=== PATIENT | female | born 1965 | race Caucasian/White ===

== ENCOUNTER → 2017-10-27 14:46 | Outpatient (CLI) | payer MEDICAID, SELFPAY ==
--- NOTE | 2017-10-27 15:02 | RAD_ITS ---
STUDY: X-RAY - LUMBAR SPINE REASON FOR EXAM: Female, 52 years old. Low back pain TECHNIQUE: 3 view(s) of the lumbar spine were obtained. COMPARISON: None FINDINGS: Normal lumbar lordosis. There is no substantial scoliosis. There is a normal alignment of the vertebrae. There is multilevel endplate spondylosis of the lumbar vertebrae. Moderate to severe disc space height loss at L5-S1. The soft tissue structures are unremarkable. RAD/Lumbar Spine 2 or 3 Views IMPRESSION: Prominent degenerative change at L5-S1 Electronically Signed: Erick Ferreira DO at 15:49 EST Tel , Service support ,
== END ==
PROVIDERS: Visit Provider Nurse Practitioner Family
DX: M54.5 Low back pain (principal)
CPT/HCPCS: 72100

== ENCOUNTER 2018-08-18 15:34 | Emergency (ER) | payer MEDICAID, SELFPAY ==
[2018-08-18 15:35] VITALS: BP 113/65; PULSE 63; RESP 18; TEMP 37; O2SAT 99; BMI 26.8
--- NOTE | 2018-08-18 15:50 | RAD_ITS ---
STUDY: X-RAY - RIGHT HAND REASON FOR EXAM: Female, 53 years old. Fall on Friday while backpacking. Pain. TECHNIQUE: 3 view(s) of the hand. COMPARISON: None. FINDINGS: Mild osteopenia. Minimal osteoarthritic degenerative features of the distal interphalangeal joints of each digit. Normal proximal interphalangeal joints, metacarpophalangeal joints, carpometacarpal joints and intercarpal articulations with normal appearance of the radiocarpal joint. No apparent soft tissue swelling. No evidence of fracture or dislocation. There is a tiny corticated ossicle along the dorsal aspect of the distal head of the middle phalanx of the 3rd digit, another along the margin of the distal interphalangeal joint of the 2nd digit, chronic appearance. RAD/Hand Min 3 Views IMPRESSION: No evidence of acute traumatic injury. Electronically Signed: Mickey Joellen, at 16:04 EST Tel , Service support ,
--- NOTE | 2018-08-18 15:52 | ED.DCSUM_ITS ---
- ER Visit Summary Date of Service: 08/18/18 Chief Complaint: Right hand injury History of Present Illness: The patient is a 53 F who was hiking in [place] over the weekend and fell in the ice and snow. She had pain to the right hand for the past 4 days. She states that the swelling does seem to be improving, but she still has pain that is worsened with flexion or extension at her wrist. She has occasional paresthesias in her thumb and her long finger. She is right-hand dominant. Physical Examination: Vital signs are unremarkable. Patient sitting upright in bed no acute distress. Head and neck examination reveals no external sign of trauma. Right upper extremity examination is significant for tenderness of the proximal aspect of the second and third metacarpals on the dorsal surface of her hand. There is minimal overlying edema. She has full range of motion of all digits and at the wrist. She has normal cap refill and sensation. There is no tenderness at the elbow or shoulder. Test Results: Right hand x-rays reveal no evidence of acute fracture. Emergency Department Course and Treatment: Patient is placed in a Velcro wrist splint. She will continue anti-inflammatories. Treatment Plan: [] Disposition: Discharge Impression: Right wrist sprain status post fall This note was generated with [employer] dictation software. It may contain incorrect words, spelling, and punctuation that were not noted in review of the chart prior to signing ED Disposition - Plan for ED Patient: Chief Complaint: Upper Extremity Injury Referrals: Tamika Adame [Primary Care Provider] -
--- NOTE | 2018-08-18 16:29 | ED.DEP ---
ED Disposition - Plan for ED Patient: Disposition: Home or Assisted Living Chief Complaint: Upper Extremity Injury Instructions: ED Sprain Wrist Referrals: Tamika Adame [Primary Care Provider] - 1 Week if not improving
== END 2018-08-18 16:47 | disposition home or self-care (01) ==
PROVIDERS: Emergency Provider Emergency Medicine
DX: S63.501A Unspecified sprain of right wrist, initial encounter (principal); W00.0XXA Fall on same level due to ice and snow, initial encounter; Y93.01 Activity, walking, marching and hiking
CPT/HCPCS: 73130; 99283

== ENCOUNTER 2018-12-12 00:46 | Observation (INO) | payer MEDICAID, SELFPAY ==
[2018-12-12] VITALS (10 sets, daily range): BP systolic 101–141; BP diastolic 52–69; PULSE 59–82; RESP 12–18; TEMP 36.5–37.1; O2SAT 98–100; BMI 29.1; BMI 28.3
--- NOTE | 2018-12-12 01:00 | EKG12_ITS ---
Test Reason : CP Blood Pressure : / mmHG Vent. Rate : 066 BPM Atrial Rate : 066 BPM P-R Int : 156 ms QRS Dur : 086 ms QT Int : 416 ms P-R-T Axes : 040 025 043 degrees QTc Int : 436 ms Normal sinus rhythm Normal ECG Confirmed by ELLEN MATT ([id number]), news video editor CEE NOYOLA ([id number]) on 12/14/2018 4:28:04 PM Referred By: Ilda Beckham Confirmed By:ELLEN MATT
--- NOTE | 2018-12-12 01:00 | RAD_ITS ---
STUDY: X-RAY CHEST REASON FOR EXAM: Female, 53 years old. Chest pain TECHNIQUE: 1 view COMPARISON: None. FINDINGS: The lungs are clear and expanded. There is no demonstrated pleural abnormality. Normal size heart. Normal mediastinum and joe. Normal visualized pulmonary arteries. Normal visualized aortic arch and descending thoracic aorta. Normal visualized thoracic spine. Normal visualized ribs, clavicles, and shoulders. There is no demonstrated abnormality of the visualized soft tissue structures of the upper abdomen. RAD/Chest 1 View (Portable) IMPRESSION: Normal x-ray examination of the chest. No acute findings in the lungs Electronically Signed: Dipak Perez MD at 2:27 EDT Tel , Service support ,
[2018-12-12 01:15] LABS: Absolute Lymphocyte Count 4.16 X10^3/ul (0.83-4.51); Absolute Neutrophil Count 7.6 X10^3/uL (2.0-7.7); Basophil# 0.03 X10^3/uL; Basophil% 0.2 % (0-1); Eosinophil# 0.19 X10^3/uL; Eosinophils% 1.4 % (0-5); Hematocrit 39.5 % (37-47); Hemoglobin 12.8 g/dl (12.0-15.0); Lymphocyte # 4.16 X10^3/ul (4.0); Lymphocyte % 30.7 % (19-41); Mean Corp Hgb Conc 32.4 g/gl (32-36); Mean Corpuscular Hgb 29.9 pg (27.0-32.0); Mean Corpuscular Volume 92.3 fL (81-99); Mean Platelet Vol. 10.6 fl (6.2-12.0); Monocyte# 1.51 X10^3/uL; Monocyte% 11.2 % (0-10); Neutrophil % 56.2 % (47-70); Platelet Count 364 K/mm3 (150-450); RBC Distribution Width CV 14.1 % (11.6-14.6); RBC Distribution Width SD 46.3 fl (35.1-43.9); Red Blood Count 4.28 M/mm3 (4.2-5.4); White Blood Count 13.5 K/mm3 (4.4-11.0)
[2018-12-12 01:16] LABS: POSITIVE COUNT NO; POSITIVE DIFFERENTIAL YES; POSITIVE MORPHOLOGY NO
[2018-12-12 01:17] LABS: International Normalized Ratio 0.9; Prothrombin Time (Protime)PT. 12.1 SECONDS (11.7-14.9)
[2018-12-12] MEDS: Aspirin 81 MG TAB.CHEW 324 MG PO (01:22)
[2018-12-12 01:25] LABS: Anion Gap 6 (5-15); BUN 19 mg/dL (7-18); BUN/Creat Ratio 27.9 RATIO (10-20); Calcium,Total 8.8 mg/dL (8.5-10.1); Chloride 102 mmol/L (98-107); Creatinine, Serum 0.68 mg/dL (0.55-1.02); EST Glomerular Filtration Rate 97 mL/min (>60); Est Glom Filt Rate - Afr Amer 117 mL/min (>60); Estimated Creatinine Clearance 77.41 ml/min; Glucose 85 mg/dL (74-106); Potassium 3.8 mmol/L (3.5-5.1); Sodium Level 135 mmol/L (136-145)
[2018-12-12 01:32] LABS: Partial Thromboplast Time 28.4 Seconds (24.1-36.2)
[2018-12-12 01:38] LABS: Differential Comment SCAN
[2018-12-12 02:15] LABS: Differential Indicated SCAN CRITERIA MET
--- NOTE | 2018-12-12 02:31 | ED.VIS.GEN ---
History of Present Illness Chief Complaint: Chest Pain Informant: Patient Onset: Weeks - 1 Context: Gradual Onset Timing: Intermittent, Lasts - 30 min or so Quality: heaviness/pressure Location: left chest w/ radiation to left shoulder and jaw Current Severity: gone Maximum Severity: Severe Worsened by: nothing -- occur at rest Relieved by: nothing in particular Associated Symptoms: no others; no n/v, sob, numbness, palpitations, lightheadedness Narrative: Patient states these are the same symptoms she had when she had 2 stents placed around 5 years ago. She has had no stress test in the past 4 or 5 years. The stents were placed in a hospital in [facility], she brought some discharge paperwork showing medications including ticagrelor, she is no longer taking that just a baby aspirin, they do not show details about her heart cath/anatomy/stents. Prior similar symptoms: Yes - w/ prior [place] Recent Illness/Hospitalization: No - Past Medical History (1) HTN (hypertension) Status: Chronic (2) CAD (coronary artery disease) Status: Chronic (3) Hyperlipidemia Status: Chronic (4) Fibromyalgia Status: Chronic Past Medical History - Allergies and Home Meds Allergies/Adverse Reactions: Allergies bee venom protein (honey bee) Allergy (Verified 12/12/18 00:49) Swelling azithromycin Adverse Reaction (Verified 12/12/18 00:49) Nausea ANESTHETIC- UNKNOWN Adverse Reaction (Uncoded 12/12/18 00:49) Vomiting Primary Care Physician: Tamika Adame [Primary Care Provider] - Surgical History: - - PCI/cardiac stent x 2 Lives: Alone Smoking Status: Former smoker Drugs: None Review of Systems General: Denies: Chills, Fever, Sweats Eyes: Denies: Visual changes - bilaterally, Diplopia ENT: Denies: Rhinorrhea, Sore throat Cardiovascular: Reports: Chest pain. Denies: Palpitations Respiratory: Denies: Dyspnea, Cough, Dyspnea on exertion Gastrointestinal: Denies: Abdominal pain, Nausea, Vomiting, Diarrhea, Melena, Hematochezia Genitourinary: Denies: Dysuria, Hematuria, Frequency Musculoskeletal: Reports: Neck pain - and jaw when chest pain present. Denies: Back pain, Extremity Pain Skin: Denies: Rash, Wounds Neurological: Denies: Headache, Weakness, Numbness Physical Exam Vital Signs/Narrative: Vital Signs Temp Pulse Resp BP Pulse Ox 12/12/18 02:19 68 16 98 12/12/18 01:49 59 L 18 123/69 H 100 12/12/18 01:19 100 12/12/18 00:46 98.7 F 68 18 141/68 H 100 Inital Vital Signs reviewed: Yes General: Well nourished, Well developed, No Acute Distress Head: Normocephalic, Atraumatic Eyes: Perrl, EOMI ENT: Moist mucous membranes, No rhinorrhea Neck: Supple, Nontender Cardiovascular: Regular rate, Regular rhythm, No murmurs Respiratory: No distress, CTA bilaterally, Chest nontender Abdomen: Soft, Nontender, Nondistended, Normal bowel sounds Back: Nontender, Normal Inspection Extremities: Nontender, No edema Skin: Normal color, No rash Neurological: Alert, Oriented x3, Cranial nerves II-XII grossly intact, Normal Strength, Normal Sensation Psychological: Normal affect, Normal Mood Diagnostic/Tx/Re-eval Impressions Chest X-Ray 12/12/18 01:00 IMPRESSION: Normal x-ray examination of the chest. No acute findings in the lungs Electronically Signed: Dipak Perez MD at 2:27 EDT Tel , Service support , 12/12/18 01:00 Chest 1 View (Portable) [RAD] Stat Laboratory Results 12/12/18 12/12/18 12/12/18 00:55 00:55 00:55 WBC 13.5 H RBC 4.28 Hgb 12.8 Hct 39.5 MCV 92.3 MCH 29.9 MCHC 32.4 RDW 14.1 RDW Differential 46.3 H Plt Count 364 MPV 10.6 Immature Gran % (Auto) 0.300 Neut % (Auto) 56.2 Lymph % (Auto) 30.7 [place] % (Auto) 11.2 H Eos % (Auto) 1.4 Baso % (Auto) 0.2 Absolute Neuts (auto) 7.6 Absolute Lymphs (auto) 4.16 Total Counted Not Reportable Differential Comment SCAN Diff Path Review January PT 12.1 INR 0.9 APTT 28.4 Sodium 135 L Potassium 3.8 Chloride 102 Carbon Dioxide 27.0 Anion Gap 6 BUN 19 H Creatinine 0.68 Estim Creat Clear Calc 77.41 Est GFR (MDRD) Af Amer 117 Est GFR (MDRD) Non-Af 97 BUN/Creatinine Ratio 27.9 H Glucose 85 Calcium 8.8 Troponin I < 0.015 - Rhythm Strip Rhythm Strip: Sinus Rhythm Rate: 65 Ectopy: None - EKG Initial EKG Interpretation: Sinus Rhythm, No Acute Injury Pattern, - - nml EKG - Medical Decision Making JOEL risk score is 4. I am concerned that she may be having episodes of unstable angina. No evidence of [place] at this time. She is amenable to admission for further workup and evaluation. Admitted to PCU. ED Disposition - Plan for ED Patient: Disposition: Acute Care Hospital [facility] Diagnosis: Unstable angina, CAD (coronary artery disease) Referrals: Tamika Adame [Primary Care Provider] -
--- NOTE | 2018-12-12 02:37 | ED.DCSUM_ITS ---
History of Present Illness Chief Complaint: Chest Pain Informant: Patient Onset: Weeks - 1 Context: Gradual Onset Timing: Intermittent, Lasts - 30 min or so Quality: heaviness/pressure Location: left chest w/ radiation to left shoulder and jaw Current Severity: gone Maximum Severity: Severe Worsened by: nothing -- occur at rest Relieved by: nothing in particular Associated Symptoms: no others; no n/v, sob, numbness, palpitations, lightheadedness Narrative: Patient states these are the same symptoms she had when she had 2 stents placed around 5 years ago. She has had no stress test in the past 4 or 5 years. The stents were placed in a hospital in [facility], she brought some discharge paperwork showing medications including ticagrelor, she is no longer taking that just a baby aspirin, they do not show details about her heart cath /anatomy/stents. Prior similar symptoms: Yes - w/ prior [place] Recent Illness/Hospitalization: No - Past Medical History (1) HTN (hypertension) Status: Chronic (2) CAD (coronary artery disease) Status: Chronic (3) Hyperlipidemia Status: Chronic (4) Fibromyalgia Status: Chronic Past Medical History - Allergies and Home Meds Allergies/Adverse Reactions: Allergies bee venom protein (honey bee) Allergy (Verified 12/12/18 00:49) Swelling azithromycin Adverse Reaction (Verified 12/12/18 00:49) Nausea ANESTHETIC- UNKNOWN Adverse Reaction (Uncoded 12/12/18 00:49) Vomiting Primary Care Physician: Tamika Adame [Primary Care Provider] - Surgical History: - - PCI/cardiac stent x 2 Lives: Alone Smoking Status: Former smoker Drugs: None Review of Systems General: Denies: Chills, Fever, Sweats Eyes: Denies: Visual changes - bilaterally, Diplopia ENT: Denies: Rhinorrhea, Sore throat Cardiovascular: Reports: Chest pain. Denies: Palpitations Respiratory: Denies: Dyspnea, Cough, Dyspnea on exertion Gastrointestinal: Denies: Abdominal pain, Nausea, Vomiting, Diarrhea, Melena, Hematochezia Genitourinary: Denies: Dysuria, Hematuria, Frequency Musculoskeletal: Reports: Neck pain - and jaw when chest pain present. Denies: Back pain, Extremity Pain Skin: Denies: Rash, Wounds Neurological: Denies: Headache, Weakness, Numbness Physical Exam Vital Signs/Narrative: Vital Signs Temp Pulse Resp BP Pulse Ox 12/12/18 02:19 68 16 98 12/12/18 01:49 59 L 18 123/69 H 100 12/12/18 01:19 100 12/12/18 00:46 98.7 F 68 18 141/68 H 100 Inital Vital Signs reviewed: Yes General: Well nourished, Well developed, No Acute Distress Head: Normocephalic, Atraumatic Eyes: Perrl, EOMI ENT: Moist mucous membranes, No rhinorrhea Neck: Supple, Nontender Cardiovascular: Regular rate, Regular rhythm, No murmurs Respiratory: No distress, CTA bilaterally, Chest nontender Abdomen: Soft, Nontender, Nondistended, Normal bowel sounds Back: Nontender, Normal Inspection Extremities: Nontender, No edema Skin: Normal color, No rash Neurological: Alert, Oriented x3, Cranial nerves II-XII grossly intact, Normal Strength, Normal Sensation Psychological: Normal affect, Normal Mood Diagnostic/Tx/Re-eval Impressions Chest X-Ray 12/12/18 01:00 IMPRESSION: Normal x-ray examination of the chest. No acute findings in the lungs Electronically Signed: Dipak Perez MD at 2:27 EDT Tel , Service support , 12/12/18 01:00 Chest 1 View (Portable) [RAD] Stat Laboratory Results 12/12/18 12/12/18 12/12/18 00:55 00:55 00:55 WBC 13.5 H RBC 4.28 Hgb 12.8 Hct 39.5 MCV 92.3 MCH 29.9 MCHC 32.4 RDW 14.1 RDW Differential 46.3 H Plt Count 364 MPV 10.6 Immature Gran % (Auto) 0.300 Neut % (Auto) 56.2 Lymph % (Auto) 30.7 [place] % (Auto) 11.2 H Eos % (Auto) 1.4 Baso % (Auto) 0.2 Absolute Neuts (auto) 7.6 Absolute Lymphs (auto) 4.16 Total Counted Not Reportable Differential Comment SCAN Diff Path Review January PT 12.1 INR 0.9 APTT 28.4 Sodium 135 L Potassium 3.8 Chloride 102 Carbon Dioxide 27.0 Anion Gap 6 BUN 19 H Creatinine 0.68 Estim Creat Clear Calc 77.41 Est GFR (MDRD) Af Amer 117 Est GFR (MDRD) Non-Af 97 BUN/Creatinine Ratio 27.9 H Glucose 85 Calcium 8.8 Troponin I < 0.015 - Rhythm Strip Rhythm Strip: Sinus Rhythm Rate: 65 Ectopy: None - EKG Initial EKG Interpretation: Sinus Rhythm, No Acute Injury Pattern, - - nml EKG - Medical Decision Making JOEL risk score is 4. I am concerned that she may be having episodes of unstable angina. No evidence of [place] at this time. She is amenable to admission for further workup and evaluation. Admitted to PCU. ED Disposition - Plan for ED Patient: Disposition: Acute Care Hospital [facility] Diagnosis: Unstable angina, CAD (coronary artery disease) Referrals: Tamika Adame [Primary Care Provider] -
--- NOTE | 2018-12-12 03:13 | PCM.HP.STD ---
Problem List (1) Chest pain Status: Acute Qualifiers: Chest pain type: unspecified Qualified Code(s): R07.9 - Chest pain, unspecified (2) Unstable angina Status: Acute (3) Nicotine vapor product user Status: Chronic (4) Former light tobacco smoker Status: Chronic (5) CAD (coronary artery disease) Status: Chronic Qualifiers: Coronary Disease-Associated Artery/Lesion type: unspecified vessel or lesion type [place] vs. transplanted heart: unspecified whether [place] or transplanted heart Associated angina: angina presence unspecified Qualified Code(s): I25.10 - Atherosclerotic heart disease of [place] coronary artery without angina pectoris (6) Fibromyalgia Status: Chronic (7) HTN (hypertension) Status: Chronic Qualifiers: Hypertension type: essential hypertension Qualified Code(s): I10 - Essential (primary) hypertension (8) Hyperlipidemia Status: Chronic Qualifiers: Hyperlipidemia type: pure hypercholesterolemia Qualified Code(s): E78.00 - Pure hypercholesterolemia, unspecified; E78.0 - Pure hypercholesterolemia (9) Anxiety and depression Status: Chronic History of Present Illness Date of Admission: 12/12/18 Chief Complaint: Chest pain The patient is a 53 y/o F w/ PMHx: CAD s/p PCI ~ 6 years prior, HTN, HLD, Anxiety and Depression, Former cigarette tobacco use now transition to vaping, Fibromyalgia, Overweight, Possible MTHFR mutation who presents to the [facility] ED on 12/12/18 with history of remittent midsternal chest pressure-tightness, rated 4-5/10 with radiation to the left shoulder and jaw, occurring at rest, lasting approximately 30 minutes with resolution with no specific interventions with no associated nausea, emesis, dyspnea or diaphoresis however the patient does admit that over the last week for no specific reason she has felt increased anxiety, awakening frequently at nights, grinding her teeth which she states is similar to her prior symptoms preceding her coronary intervention remotely. The patient is very active and she notes that she routinely hikes and has had no chest discomfort during these events. Work-up in the ED included T 98.7, heart rate 60, BP initially 141/68 with repeat 123/69, respiratory rate 18, 100% on room air, CBC with WBC 13.5, hemoglobin 12.8, platelets 364 without left shift, unremarkable coags, BMP with sodium 135, BUN/creatinine 19/0.68, troponin less than 0.015, EKG was sinus rhythm with no acute evidence of ischemia, chest x-ray with no acute cardiopulmonary findings. In ED patient ministered aspirin 324 mg p.o. x1. Upon ED evaluation patient was chest pain-free. Past Medical History Past Medical History (Chronic Problems): Chronic Problems HTN (hypertension) (Chronic) CAD (coronary artery disease) (Chronic) Hyperlipidemia (Chronic) Fibromyalgia (Chronic) Nicotine vapor product user (Chronic) Former light tobacco smoker (Chronic) Anxiety and depression (Chronic) Allergies bee venom protein (honey bee) Allergy (Verified 12/12/18 00:49) Swelling azithromycin Adverse Reaction (Verified 12/12/18 00:49) Nausea ANESTHETIC- UNKNOWN Adverse Reaction (Uncoded 12/12/18 00:49) Vomiting Home Medications: Ambulatory Orders Medication Instructions Recorded ALPRAZolam [Xanax] 0.25 mg PO BID PRN PRN 12/12/18 Atenolol [Tenormin (beta vani)] 50 mg PO DAILY 12/12/18 Atorvastatin Calcium [Lipitor] 40 mg PO QHS 12/12/18 Cyclobenzaprine [Flexeril] 10 mg PO DAILY 12/12/18 Escitalopram Oxalate 20 mg PO DAILY 12/12/18 Hydroxyzine HCl 25 mg PO DAILY PRN PRN 12/12/18 Surgical History: - - PCI/cardiac stent x 2, lumbar back surgery x 2, Rhinoplasty, T+A. 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 Alcohol: Occasional Drugs: Marijuana - *Family History Maternal History Items: - - Patient notes a maternal and paternal family history of MT HFR mutation, unclear type. Paternal History Items: - - Patient notes a maternal and paternal family history of MT HFR mutation, unclear type as well as a paternal family history of CVA. Review of Systems Constitutional: Reports: Fatigue. Denies: Chills, Fever, Weight Change HEENT: Denies: Head Aches, Sinus Congestion, Sinus Drainage Cardiovascular: Reports: Chest Pain, Chest Pressure, Chest Tightness. Denies: Heaviness, Light Headedness, Orthopnea, Palpitations, Syncope Respiratory: Denies: Cough, Shortness of Breath, Shortness of breath at rest, Shortness of breath upon exertion, Sputum production Gastrointestinal: Denies: Abdominal Pain, Nausea, Vomiting Genitourinary: Denies: Dysuria Musculoskeletal: Reports: Back Pain. Denies: Joint Pain, Joint Tenderness Skin: Denies: Rash, Wounds Neurological: Denies: Numbness, Tingling, Focal weakness Psychiatric: Reports: Anxiety, Depression. Denies: Homicidal Ideations, Suicidal Ideations Hematologic/ Lymphatic: Denies: Easy Bruising, Easy Bleeding VTE Information - Inpt Only VTE Present on Admission: No VTE Mechan Device Prophylaxis: SCD's VTE Pharm Prophylaxis ordered?: Yes Patient Problems: Active and Suspected Problems Unstable angina (Acute) Chest pain (Acute) Subjective: Seated upright in ED bed, no acute distress, no current chest discomfort at this time. Objective: Physical Examination: General: awake, alert, oriented x 3 and cooperative, seated upright in the ED bed in no apparent distress. Skin: normal color, turgor, no icterus, cyanosis. HEENT: AT/NC, EOMI, PERRLA, mildly dry MM, no carotid bruits or JVD noted. Lungs: CTA bilaterally, moderate effort, mild decrease BL bases, no rales, ronchi or wheezing. Heart: Regular rate and rhythm; no gallop, rub audible. Abdomen: soft, NTTP, ND, normal BS, no HSM. Extremities: no cyanosis, clubbing, or edema. Neurological: patient awake, alert, oriented x 3; cognitive function intact; pupils equally reactive to light and accomodation; cranial nerves II-XII grossly normal, moving all 4 extremities, no focal deficits, strength mildly moderately globally decreased secondary to acute presentation. Psychiatric: affect appears normal, mildly fatigued, no acute evidence of depressive or anxiety feelings. - Physical Exam Vital Signs Temp Pulse Resp BP Pulse Ox 98.7 F 62 12 123/69 H 98 12/12/18 00:46 12/12/18 03:06 12/12/18 03:06 12/12/18 01:49 12/12/18 03:06 Oxygen Delivery Method Room Air Weight: 159 lb 2.78 oz Body Mass Index (BMI) 29.1 Laboratory Tests Past 24 Hrs 12/12/18 12/12/18 12/12/18 00:55 00:55 00:55 WBC 13.5 H RBC 4.28 Hgb 12.8 Hct 39.5 MCV 92.3 MCH 29.9 MCHC 32.4 RDW 14.1 RDW Differential 46.3 H Plt Count 364 MPV 10.6 Immature Gran % (Auto) 0.300 Neut % (Auto) 56.2 Lymph % (Auto) 30.7 [place] % (Auto) 11.2 H Eos % (Auto) 1.4 Baso % (Auto) 0.2 Absolute Neuts (auto) 7.6 Absolute Lymphs (auto) 4.16 Total Counted Not Reportable Differential Comment SCAN Diff Path Review January foll PT 12.1 INR 0.9 APTT 28.4 Sodium 135 L Potassium 3.8 Chloride 102 Carbon Dioxide 27.0 Anion Gap 6 BUN 19 H Creatinine 0.68 Estim Creat Clear Calc 77.41 Est GFR (MDRD) Af Amer 117 Est GFR (MDRD) Non-Af 97 BUN/Creatinine Ratio 27.9 H Glucose 85 Calcium 8.8 Troponin I < 0.015 Assessment/Plan All Active Problems Unstable angina (Acute) Chest pain (Acute) The patient is a 53 y/o F w/ PMHx: CAD s/p PCI ~ 6 years prior, HTN, HLD, Anxiety and Depression, Former cigarette tobacco use now transition to vaping, Fibromyalgia, Overweight, Possible MTHFR mutation who presents to the [facility] ED on 12/12/18 with history of remittent midsternal chest pressure-tightness, rated 4-5/10 with radiation to the left shoulder and jaw, occurring at rest, lasting approximately 30 minutes with resolution with no specific interventions with no associated nausea, emesis, dyspnea or diaphoresis however the patient does admit that over the last week for no specific reason she has felt increased anxiety, awakening frequently at nights, grinding her teeth. (1) Chest Pain, Possible UA: EKG in ED sinus rhythm with no acute evidence of ischemia, CXR w/ no acute cardiopulmonary findings, initial trop normal x1. Will admit to PCU, place on a monitored bed to assure no acute myocardial infarction with serial cardiac enzymes and EKGs. If cardiac enzymes and repeat EKGs remain unremarkable we will pursue a.m. stress testing. ASA, NG, morphine. FLP in AM. Mag pending. (2) CAD: Status post PCI x 2 approximate 6 years prior in [place], maintained on aspirin, statin, atenolol. (3) Hypertension: Continue home regimen including atenolol, PRN hydralazine. (4) Hyperlipidemia: Continue home statin regimen. AM FLP. (5) Anxiety and depression: Continue home escitalopram and Xanax regimen. (6) Former tobacco use-->Vaping: Encouraged cessation, inpatient consultation per RT. (7) Overweight: Encouraged diet and lifestyle changes. (8) Possible MTHFR mutation: Both parents with some form of the MT HFR mutation, she is never been tested, will obtain folic acid and vitamin B12 levels. (9) DVT prophylaxis: SCD, Lovenox. Code Visit OBSV E&M: 99184 Initial observation care L3
--- NOTE | 2018-12-12 03:24 | HP.PCM_ITS ---
Problem List (1) Chest pain Status: Acute Qualifiers: Chest pain type: unspecified Qualified Code(s): R07.9 - Chest pain, unspecified (2) Unstable angina Status: Acute (3) Nicotine vapor product user Status: Chronic (4) Former light tobacco smoker Status: Chronic (5) CAD (coronary artery disease) Status: Chronic Qualifiers: Coronary Disease-Associated Artery/Lesion type: unspecified vessel or lesion type [place] vs. transplanted heart: unspecified whether [place] or transplanted heart Associated angina: angina presence unspecified Qualified Code(s): I25.10 - Atherosclerotic heart disease of [place] coronary artery without angina pectoris (6) Fibromyalgia Status: Chronic (7) HTN (hypertension) Status: Chronic Qualifiers: Hypertension type: essential hypertension Qualified Code(s): I10 - Essential (primary) hypertension (8) Hyperlipidemia Status: Chronic Qualifiers: Hyperlipidemia type: pure hypercholesterolemia Qualified Code(s): E78.00 - Pure hypercholesterolemia, unspecified; E78.0 - Pure hypercholesterolemia (9) Anxiety and depression Status: Chronic History of Present Illness Date of Admission: 12/12/18 Chief Complaint: Chest pain The patient is a 53 y/o F w/ PMHx: CAD s/p PCI ~ 6 years prior, HTN, HLD, Anxiety and Depression, Former cigarette tobacco use now transition to vaping, Fibromyalgia, Overweight, Possible MTHFR mutation who presents to the [facility] ED on 12/12/18 with history of remittent midsternal chest pressure-tightness, rated 4- 5/10 with radiation to the left shoulder and jaw, occurring at rest, lasting approximately 30 minutes with resolution with no specific interventions with no associated nausea, emesis, dyspnea or diaphoresis however the patient does admit that over the last week for no specific reason she has felt increased anxiety, awakening frequently at nights, grinding her teeth which she states is similar to her prior symptoms preceding her coronary intervention remotely. The patient is very active and she notes that she routinely hikes and has had no chest discomfort during these events. Work-up in the ED included T 98.7, heart rate 60, BP initially 141/68 with repeat 123/69, respiratory rate 18, 100% on room air, CBC with WBC 13.5, hemoglobin 12.8, platelets 364 without left shift, unremarkable coags, BMP with sodium 135, BUN/creatinine 19/0.68, troponin less than 0.015, EKG was sinus rhythm with no acute evidence of ischemia, chest x-ray with no acute cardiopulmonary findings. In ED patient ministered aspirin 324 mg p.o. x1. Upon ED evaluation patient was chest pain-free. Past Medical History Past Medical History (Chronic Problems): Chronic Problems HTN (hypertension) (Chronic) CAD (coronary artery disease) (Chronic) Hyperlipidemia (Chronic) Fibromyalgia (Chronic) Nicotine vapor product user (Chronic) Former light tobacco smoker (Chronic) Anxiety and depression (Chronic) Allergies bee venom protein (honey bee) Allergy (Verified 12/12/18 00:49) Swelling azithromycin Adverse Reaction (Verified 12/12/18 00:49) Nausea ANESTHETIC- UNKNOWN Adverse Reaction (Uncoded 12/12/18 00:49) Vomiting Home Medications: Ambulatory Orders Medication Instructions Recorded ALPRAZolam [Xanax] 0.25 mg PO BID PRN PRN 12/12/18 Atenolol [Tenormin (beta vani)] 50 mg PO DAILY 12/12/18 Atorvastatin Calcium [Lipitor] 40 mg PO QHS 12/12/18 Cyclobenzaprine [Flexeril] 10 mg PO DAILY 12/12/18 Escitalopram Oxalate 20 mg PO DAILY 12/12/18 Hydroxyzine HCl 25 mg PO DAILY PRN PRN 12/12/18 Surgical History: - - PCI/cardiac stent x 2, lumbar back surgery x 2, Rhinoplasty, T+A. Psychiatric History: Anxiety, Depression MSW History: No pertinent MSW history Lives: Spouse/ Significant Other Smoking Status: Current every day smoker Tobacco Use: - - Previously cigarette tobacco use now transition to vaping stating she uses the 1.5 mg throughout the day. Alcohol: Occasional Drugs: Marijuana - *Family History Maternal History Items: - - Patient notes a maternal and paternal family history of MT HFR mutation, unclear type. Paternal History Items: - - Patient notes a maternal and paternal family history of MT HFR mutation, unclear type as well as a paternal family history of CVA. Review of Systems Constitutional: Reports: Fatigue. Denies: Chills, Fever, Weight Change HEENT: Denies: Head Aches, Sinus Congestion, Sinus Drainage Cardiovascular: Reports: Chest Pain, Chest Pressure, Chest Tightness. Denies: Heaviness, Light Headedness, Orthopnea, Palpitations, Syncope Respiratory: Denies: Cough, Shortness of Breath, Shortness of breath at rest, Shortness of breath upon exertion, Sputum production Gastrointestinal: Denies: Abdominal Pain, Nausea, Vomiting Genitourinary: Denies: Dysuria Musculoskeletal: Reports: Back Pain. Denies: Joint Pain, Joint Tenderness Skin: Denies: Rash, Wounds Neurological: Denies: Numbness, Tingling, Focal weakness Psychiatric: Reports: Anxiety, Depression. Denies: Homicidal Ideations, Suicidal Ideations Hematologic/ Lymphatic: Denies: Easy Bruising, Easy Bleeding VTE Information - Inpt Only VTE Present on Admission: No VTE Mechan Device Prophylaxis: SCD's VTE Pharm Prophylaxis ordered?: Yes Patient Problems: Active and Suspected Problems Unstable angina (Acute) Chest pain (Acute) Subjective: Seated upright in ED bed, no acute distress, no current chest discomfort at this time. Objective: Physical Examination: General: awake, alert, oriented x 3 and cooperative, seated upright in the ED bed in no apparent distress. Skin: normal color, turgor, no icterus, cyanosis. HEENT: AT/NC, EOMI, PERRLA, mildly dry MM, no carotid bruits or JVD noted. Lungs: CTA bilaterally, moderate effort, mild decrease BL bases, no rales, ronchi or wheezing. Heart: Regular rate and rhythm; no gallop, rub audible. Abdomen: soft, NTTP, ND, normal BS, no HSM. Extremities: no cyanosis, clubbing, or edema. Neurological: patient awake, alert, oriented x 3; cognitive function intact; pupils equally reactive to light and accomodation; cranial nerves II-XII grossly normal, moving all 4 extremities, no focal deficits, strength mildly moderately globally decreased secondary to acute presentation. Psychiatric: affect appears normal, mildly fatigued, no acute evidence of depressive or anxiety feelings. - Physical Exam Vital Signs Temp Pulse Resp BP Pulse Ox 98.7 F 62 12 123/69 H 98 12/12/18 00:46 12/12/18 03:06 12/12/18 03:06 12/12/18 01:49 12/12/18 03:06 Oxygen Delivery Method Room Air Weight: 159 lb 2.78 oz Body Mass Index (BMI) 29.1 Laboratory Tests Past 24 Hrs 12/12/18 12/12/18 12/12/18 00:55 00:55 00:55 WBC 13.5 H RBC 4.28 Hgb 12.8 Hct 39.5 MCV 92.3 MCH 29.9 MCHC 32.4 RDW 14.1 RDW Differential 46.3 H Plt Count 364 MPV 10.6 Immature Gran % (Auto) 0.300 Neut % (Auto) 56.2 Lymph % (Auto) 30.7 [place] % (Auto) 11.2 H Eos % (Auto) 1.4 Baso % (Auto) 0.2 Absolute Neuts (auto) 7.6 Absolute Lymphs (auto) 4.16 Total Counted Not Reportable Differential Comment SCAN Diff Path Review January foll PT 12.1 INR 0.9 APTT 28.4 Sodium 135 L Potassium 3.8 Chloride 102 Carbon Dioxide 27.0 Anion Gap 6 BUN 19 H Creatinine 0.68 Estim Creat Clear Calc 77.41 Est GFR (MDRD) Af Amer 117 Est GFR (MDRD) Non-Af 97 BUN/Creatinine Ratio 27.9 H Glucose 85 Calcium 8.8 Troponin I < 0.015 Assessment/Plan All Active Problems Unstable angina (Acute) Chest pain (Acute) The patient is a 53 y/o F w/ PMHx: CAD s/p PCI ~ 6 years prior, HTN, HLD, Anxiety and Depression, Former cigarette tobacco use now transition to vaping, Fibromyalgia, Overweight, Possible MTHFR mutation who presents to the [facility] ED on 12/12/18 with history of remittent midsternal chest pressure-tightness, rated 4- 5/10 with radiation to the left shoulder and jaw, occurring at rest, lasting approximately 30 minutes with resolution with no specific interventions with no associated nausea, emesis, dyspnea or diaphoresis however the patient does admit that over the last week for no specific reason she has felt increased anxiety, awakening frequently at nights, grinding her teeth. (1) Chest Pain, Possible UA: EKG in ED sinus rhythm with no acute evidence of ischemia, CXR w/ no acute cardiopulmonary findings, initial trop normal x1. Will admit to PCU, place on a monitored bed to assure no acute myocardial infarction with serial cardiac enzymes and EKGs. If cardiac enzymes and repeat EKGs remain unremarkable we will pursue a.m. stress testing. ASA, NG, morphine. FLP in AM. Mag pending. (2) CAD: Status post PCI x 2 approximate 6 years prior in [place], maintained on aspirin, statin, atenolol. (3) Hypertension: Continue home regimen including atenolol, PRN hydralazine. (4) Hyperlipidemia: Continue home statin regimen. AM FLP. (5) Anxiety and depression: Continue home escitalopram and Xanax regimen. (6) Former tobacco use-->Vaping: Encouraged cessation, inpatient consultation per RT. (7) Overweight: Encouraged diet and lifestyle changes. (8) Possible MTHFR mutation: Both parents with some form of the MT HFR mutation, she is never been tested, will obtain folic acid and vitamin B12 levels. (9) DVT prophylaxis: SCD, Lovenox. Code Visit OBSV E&M: 87560 Initial observation care L3
--- NOTE | 2018-12-12 04:19 | EKG12_ITS ---
Test Reason : AM EKG Blood Pressure : / mmHG Vent. Rate : 063 BPM Atrial Rate : 063 BPM P-R Int : 178 ms QRS Dur : 088 ms QT Int : 414 ms P-R-T Axes : 046 020 028 degrees QTc Int : 423 ms Normal sinus rhythm Normal ECG No previous ECGs available Confirmed by PRADIP WHITE, YASMIN ([id number]), school photograph editor CEE NOYOLA ([id number]) on 12/16/2018 1:22:06 PM Referred By: Ilda Beckham Confirmed By:YASMIN MOSELEY MD
[2018-12-12 04:57] LABS: Hemoglobin 11.9 g/dl (12.0-15.0); Mean Corp Hgb Conc 32.2 g/gl (32-36); Mean Corpuscular Hgb 29.5 pg (27.0-32.0); Mean Corpuscular Volume 91.8 fL (81-99); Mean Platelet Vol. 10.8 fl (6.2-12.0); Platelet Count 325 K/mm3 (150-450); RBC Distribution Width SD 46.1 fl (35.1-43.9); Red Blood Count 4.03 M/mm3 (4.2-5.4); White Blood Count 13.3 K/mm3 (4.4-11.0)
[2018-12-12 05:00] LABS: Scan Indicated on CBC? Y/N NO
[2018-12-12 05:28] LABS: ALB/GLOB Ratio 1.2 RATIO (0.9-2.4); AST(SGOT) 15 U/L (15-37); Alanine Aminotransfer ALT/SGPT 31 U/L (13-56); Albumin, Serum 3.5 g/dL (3.2-5.0); Alkaline Phosphatase 45 U/L (45-117); Anion Gap 5 (5-15); BUN 17 mg/dL (7-18); BUN/Creat Ratio 25.5 RATIO (10-20); Calcium,Total 8.5 mg/dL (8.5-10.1); Chloride 107 mmol/L (98-107); Cholesterol 141 mg/dL (200); Creatinine, Serum 0.67 mg/dL (0.55-1.02); EST Glomerular Filtration Rate 99 mL/min (>60); Est Glom Filt Rate - Afr Amer 120 mL/min (>60); Estimated Creatinine Clearance 78.57 ml/min; Glucose 88 mg/dL (74-106); High Density Lipoprotein 72 mg/dL; Protein, Total 6.5 g/dL (6.4-8.2); Sodium Level 142 mmol/L (136-145); Triglycerides 49 mg/dL; Very Low Density Lipoprotein 10 mg/dL (5-40)
[2018-12-12] MEDS: 0.9% Normal Saline 1,000 ML 125 ML IV (05:40)
[2018-12-12] MEDS: 0.9% NaCl Peripheral Flush Adult/Peds IV (05:43)
--- NOTE | 2018-12-12 05:55 | STE_ITS ---
Reason For Study: Chest Pain Stress Results Protocol: Dmitry Protocol Maximum Predicted HR: 169 bpm Target HR: 144 bpm % Maximum Predicted HR: 85 % DurationHeart Rate Stage (mm:ss) (bpm) BP Comment Baseline 61 104/62No Chest Pain Dmitry Protocol Stage I 3:00 104 124/68No Chest Pain Dmitry Protocol Stage II 3:00 121 146/62No Chest Pain; Mild Dyspnea Dmitry Protocol Stage III 2:00 144 156/72No Chest Pain; Moderate Dyspnea Recovery 76 118/60No Chest Pain Stress Duration: 8:00 mm:ss Maximum Stress HR: 144 bpm METS: 10 Baseline Echocardiogram Findings The estimated ejection fraction is 65 %. Stress Echo Wall motion Data Resting WM Intermediate WM Stress WM Resting Wall Motion Wall Motion Stress No regional wall motion No regional wall motion abnormalities noted. abnormalities noted. EKG Data Normal intervals are noted. The patient exercised according to the regular Dmitry protocol for a total duration of 8:00. The maximum heart rate attained was 144 beats per minute. The patient exercised into stage 3 of the Dmitry protocol. This was 85% of maximum predicted heart rate. During stress, there were no ST or T wave changes noted to suggest ischemia. No clinical angina was noted. No arrhythmias noted. Interpretation Summary The estimated ejection fraction is 65 %. Normal, adequate, treadmill echocardiogram. Negative for ischemia by EKG and echocardiographic criteria. No anginal symptoms noted. No arrhythmias noted. Appropriate blood pressure response to exercise. Average exercise capacity for age. Test terminated due to dyspnea. Final LVEF is 75%. No complications. Ordering Physician: Daisy Rodrigues Referring Physician: Wiliam Boyd Performed By: Adela Knox, CHIO, RVT
[2018-12-12] MEDS: Escitalopram Oxalate 20 MG Tablet PO (10:28)
[2018-12-12] MEDS: Atenolol 50 MG Tablet PO (10:28)
[2018-12-12] MEDS: Famotidine 20 MG Tablet PO (10:28)
--- NOTE | 2018-12-12 11:07 | DCINST_ITS ---
- Discharge Diagnoses Current Active Problems: Current Active and Chronic Problems HTN (hypertension) (Chronic) CAD (coronary artery disease) (Chronic) Hyperlipidemia (Chronic) Fibromyalgia (Chronic) Unstable angina (Acute) Chest pain (Acute) Nicotine vapor product user (Chronic) Former light tobacco smoker (Chronic) Anxiety and depression (Chronic) Reason(s) for Visit for Discharge Instructions: Chest pain You will use the following diet at home:: Cardiac Your food should be the consistency of: Regular Your liquids should be the consistency of: Regular/Thin Discharge Activity: Return to Normal Activity Additional Instructions: Continue on all your medications. Continue on a low salt, low fat diet. Folow-up with your primary doctor within 1-2 weeks Allergies/Adverse Reactions: Allergies bee venom protein (honey bee) Allergy (Verified 12/12/18 00:49) Swelling azithromycin Adverse Reaction (Verified 12/12/18 00:49) Nausea ANESTHETIC- UNKNOWN Adverse Reaction (Uncoded 12/12/18 00:49) Vomiting chocolate Adverse Reaction (Uncoded 12/12/18 04:55) Other Medications to take at Discharge ALPRAZolam [Xanax] 0.25 mg PO BID PRN PRN 12/12/18 Aspirin 81 mg PO DAILY 12/12/18 Atenolol [Tenormin (beta vani)] 50 mg PO DAILY 12/12/18 Atorvastatin Calcium [Lipitor] 40 mg PO QHS 12/12/18 Cyclobenzaprine [Flexeril] 10 mg PO QHS 12/12/18 Escitalopram Oxalate 20 mg PO DAILY 12/12/18 Gluc Joshua/Chondro Joshua A/Vit C/Mn [Glucosamine Chondroitin Tab] 1 tab PO BID 12/12/18 Hydroxyzine HCl 25 mg PO DAILY PRN PRN 12/12/18 Primary Care Physician: Tamika Adame [Primary Care Provider] - Please follow up with your Primary Care Physician in: within 1-2 weeks Test Results: Test results from this visit will be discussed in further detail at your follow- up appointment, if applicable. Proposed Discharge Date: 12/12/18
--- NOTE | 2018-12-12 11:42 | DS.PCM_ITS ---
Discharge Date and Diagnosis Date of Admission: 12/12/18 Date of Discharge: 12/12/18 - Primary Discharge Diagnosis Active and Suspected Problems Unstable angina (Acute) Chest pain (Acute) - Secondary Discharge Diagnosis Chronic Problems HTN (hypertension) (Chronic) CAD (coronary artery disease) (Chronic) Hyperlipidemia (Chronic) Fibromyalgia (Chronic) Nicotine vapor product user (Chronic) Former light tobacco smoker (Chronic) Anxiety and depression (Chronic) Hospital Course and Treatment Imaging Results: 12/12/18 05:55 Stress Test Echo w/o Contrast [ECHO] Routine Clinical Impression(s) from Imaging Studies Chest X-Ray 12/12/18 01:00 IMPRESSION: Normal x-ray examination of the chest. No acute findings in the lungs Electronically Signed: Dipak Perez MD at 2:27 EDT Tel , Service support , None Operations: None Procedures: Stress test Summary of Care Provided: The patient is a 53 year old F with past medical history of CAD status post PCI, hypertension, hyperlipidemia, anxiety/depression who comes in with complaints of chest pain. Patient's admitting EKG shows no acute ST changes. Troponins were negative. She underwent a stress test that was negative. Patient's vitals were stable. Subjective: Patient was seen and examined. Denies chest pain, dizziness, SOB, palpitations. - Physical Exam General: Alert, Oriented x3, Cooperative, No apparent distress HEENT: Atraumatic, PERRLA, EOMI, Normocephalic Oral: Moist Mucosa Neck: Supple Lungs: Normal air movement, Diminished Cardiovascular: Regular rate, Regular Rhythm, Normal S1, Normal S2, No murmurs Abdomen: Bowel Sounds Present, Soft, Non Tender, Non-Distended, No Hepato- splenomegaly Extremities: No edema Skin: No rashes, No breakdown Musculoskeletal: No Tenderness to Palpation of Joints or Extremities Lymphatic: No Cervical, Supraclavicular, or Inguinal Adenopathy Neurological: Cranial nerves II-XII grossly intact, Neuro grossly intact Psych/Mental Status: Normal Affect, Appropriate Vital Signs Temp Pulse Resp BP Pulse Ox 98.3 F 69 16 101/55 L 98 12/12/18 10:22 12/12/18 10:22 12/12/18 10:22 12/12/18 10:22 12/12/18 10:22 Oxygen Delivery Method Room Air Weight: 70.2 kg Body Mass Index (BMI) 28.3 Intake and Output for Last 24 Hours 12/10/18 12/11/18 12/12/18 23:59 23:59 23:59 Intake Total Balance Laboratory Tests Past 24 Hrs 12/12/18 12/12/18 12/12/18 00:55 00:55 00:55 WBC 13.5 H RBC 4.28 Hgb 12.8 Hct 39.5 MCV 92.3 MCH 29.9 MCHC 32.4 RDW 14.1 RDW Differential 46.3 H Plt Count 364 MPV 10.6 Immature Gran % (Auto) 0.300 Neut % (Auto) 56.2 Lymph % (Auto) 30.7 [place] % (Auto) 11.2 H Eos % (Auto) 1.4 Baso % (Auto) 0.2 Absolute Neuts (auto) 7.6 Absolute Lymphs (auto) 4.16 Total Counted Not Reportable Differential Comment SCAN Diff Path Review January foll PT 12.1 INR 0.9 APTT 28.4 Sodium 135 L Potassium 3.8 Chloride 102 Carbon Dioxide 27.0 Anion Gap 6 BUN 19 H Creatinine 0.68 Estim Creat Clear Calc 77.41 Est GFR (MDRD) Af Amer 117 Est GFR (MDRD) Non-Af 97 BUN/Creatinine Ratio 27.9 H Glucose 85 Calcium 8.8 Magnesium Total Bilirubin AST ALT Alkaline Phosphatase Troponin I < 0.015 Total Protein Albumin Globulin Albumin/Globulin Ratio Triglycerides Cholesterol LDL Cholesterol VLDL Cholesterol HDL Cholesterol Vitamin B12 Folate 12/12/18 12/12/18 12/12/18 04:39 04:39 04:39 WBC 13.3 H RBC 4.03 L Hgb 11.9 L Hct 37.0 MCV 91.8 MCH 29.5 MCHC 32.2 RDW 14.0 RDW Differential 46.1 H Plt Count 325 MPV 10.8 Immature Gran % (Auto) Neut % (Auto) Lymph % (Auto) [place] % (Auto) Eos % (Auto) Baso % (Auto) Absolute Neuts (auto) Absolute Lymphs (auto) Total Counted Differential Comment Diff Path Review PT INR APTT Sodium 142 Potassium 4.0 Chloride 107 Carbon Dioxide 30.0 Anion Gap 5 BUN 17 Creatinine 0.67 Estim Creat Clear Calc 78.57 Est GFR (MDRD) Af Amer 120 Est GFR (MDRD) Non-Af 99 BUN/Creatinine Ratio 25.5 H Glucose 88 Calcium 8.5 Magnesium 2.0 Total Bilirubin 0.20 AST 15 ALT 31 Alkaline Phosphatase 45 Troponin I < 0.015 Total Protein 6.5 Albumin 3.5 Globulin 3.0 Albumin/Globulin Ratio 1.2 Triglycerides 49 Cholesterol 141 LDL Cholesterol 59 VLDL Cholesterol 10 HDL Cholesterol 72 Vitamin B12 Pending Folate 18.80 12/12/18 10:45 WBC RBC Hgb Hct MCV MCH MCHC RDW RDW Differential Plt Count MPV Immature Gran % (Auto) Neut % (Auto) Lymph % (Auto) [place] % (Auto) Eos % (Auto) Baso % (Auto) Absolute Neuts (auto) Absolute Lymphs (auto) Total Counted Differential Comment Diff Path Review PT INR APTT Sodium Potassium Chloride Carbon Dioxide Anion Gap BUN Creatinine Estim Creat Clear Calc Est GFR (MDRD) Af Amer Est GFR (MDRD) Non-Af BUN/Creatinine Ratio Glucose Calcium Magnesium Total Bilirubin AST ALT Alkaline Phosphatase Troponin I < 0.015 Total Protein Albumin Globulin Albumin/Globulin Ratio Triglycerides Cholesterol LDL Cholesterol VLDL Cholesterol HDL Cholesterol Vitamin B12 Folate Discharge Diet: Low fat/ Low Cholesterol, 2000 mg Sodium Diet Discharge Activity: Return to Normal Activity Home Medications: Medications to take at Discharge ALPRAZolam [Xanax] 0.25 mg PO BID PRN PRN 12/12/18 Aspirin 81 mg PO DAILY 12/12/18 Atenolol [Tenormin (beta vani)] 50 mg PO DAILY 12/12/18 Atorvastatin Calcium [Lipitor] 40 mg PO QHS 12/12/18 Cyclobenzaprine [Flexeril] 10 mg PO QHS 12/12/18 Escitalopram Oxalate 20 mg PO DAILY 12/12/18 Gluc Joshua/Chondro Joshua A/Vit C/Mn [Glucosamine Chondroitin Tab] 1 tab PO BID 12/12/18 Hydroxyzine HCl 25 mg PO DAILY PRN PRN 12/12/18 Primary Care Physician: Tamika Adame [Primary Care Provider] - Please follow up with your Primary Care Physician in: within 1-2 weeks Disposition: Home Minutes spent on discharge:: 40 Patient Condition:: Stable Medical Necessity - Tobacco Use Smoking Status: Current every day smoker Tobacco Use: Cigarettes, Vapor Meaningful Use Info Meaningful Use Diagnoses (Choose all that apply): None applicable Code Visit Inpatient E&M: 31753 Disch Hosp
[2018-12-14 09:02] LABS: Vitamin B12 431 pg/mL (211-911)
[2018-12-14 11:56] LABS: Pathologist Review Reviewed
== END 2018-12-12 11:05 | disposition home or self-care (01) ==
LOC: ED 02:57 → PCU 03:49
PROVIDERS: Admitting Provider Family Medicine; Emergency Provider Emergency Medicine; Referring Provider Nurse Practitioner Family; Visit Provider Internal Medicine
DX: I25.110 Atherosclerotic heart disease of native coronary artery with unstable angina pectoris (principal); I10 Essential (primary) hypertension; E78.5 Hyperlipidemia, unspecified; M79.7 Fibromyalgia; Z23 Encounter for immunization; F41.9 Anxiety disorder, unspecified; F32.9 Major depressive disorder, single episode, unspecified; Z79.82 Long term (current) use of aspirin; Z79.899 Other long term (current) drug therapy; F17.290 Nicotine dependence, other tobacco product, uncomplicated
CPT/HCPCS: 36415; 71045; 80048; 80053; 80061; 82607; 82746; 83735; 84484; 85025; 85027; 85610; 85730; 93005; 93017; 93350; 96360; 96361; 99218; 99283; J7030; 90686; A4216; G0378

== ENCOUNTER 2019-11-29 14:39 | Outpatient (RCR) | payer SELFPAY ==
[2018-12-12 04:35] VITALS: BMI 28.3
== END 2019-12-28 23:59 ==
LOC: WC 14:39
PROVIDERS: Visit Provider Nurse Practitioner Family
DX: Z09 Encounter for follow-up examination after completed treatment for conditions other than malignant neoplasm (principal)

== ENCOUNTER 2020-12-15 16:23 | Outpatient (RCR) | payer MEDICARE, SELFPAY ==
[2018-12-12 04:35] VITALS: BMI 28.3
[2020-12-15] MEDS: COVID-19 VACC, MRNA(PFIZER)/PF 30 MCG/0.3 ML SYRINGE IM (11:39)
[2021-01-05] MEDS: COVID-19 VACC, MRNA(PFIZER)/PF 30 MCG/0.3 ML SYRINGE IM (11:35)
== END 2020-12-15 23:59 ==
LOC: IMMUN 16:23
PROVIDERS: Visit Provider Family Medicine
DX: Z23 Encounter for immunization (principal)
CPT/HCPCS: 0001A; 0002A; 91300

== ENCOUNTER → 2025-02-02 | Outpatient (CLI) | payer BC, SELFPAY ==
[2025-02-02 12:55] LABS: Absolute Neutrophil Count 4.1 X10^3/uL (2.0-7.7); Basophil# 0.04 X10^3/uL; Basophil% 0.5 % (0-1); Eosinophil# 0.19 X10^3/uL; Eosinophils% 2.6 % (0-5); Hematocrit 34.7 % (37-47); Hemoglobin 12.8 g/dL (12.0-15.0); Lymphocyte % 31.1 % (19-41); Mean Corp Hgb Conc 36.9 g/dL (32-36); Mean Corpuscular Hgb 35.8 pg (27.0-32.0); Mean Corpuscular Volume 96.9 fL (81-99); Mean Platelet Vol. 10.6 fl (6.2-12.0); Monocyte# 0.77 X10^3/uL; Monocyte% 10.4 % (0-10); NRBC Flagged by Analyzer 0 % (0-5); Neutrophil # 4.07 X10^3/uL (2.7-7.7); Neutrophil % 55.1 % (47-70); Platelet Count 359 K/mm3 (150-450); RBC Distribution Width CV 14.8 % (11.6-14.6); Red Blood Count 3.58 M/mm3 (4.2-5.4); White Blood Count 7.4 K/mm3 (4.4-11.0)
[2025-02-02 13:38] LABS: ALB/GLOB Ratio 1.5 RATIO (0.9-2.4); AST(SGOT) 24 U/L (<=31); Alanine Aminotransfer ALT/SGPT 29 U/L (<=34); Albumin, Serum 4.4 g/dL (3.5-5.0); Alkaline Phosphatase 66 U/L (35-104); Anion Gap 11 (5-15); BUN 11 mg/dL (4-19); BUN/Creat Ratio 20.3 RATIO (10-20); Calcium,Total 9.8 mg/dL (7.6-11.0); Carbon Dioxide 23.6 mmol/L (21.0-32.0); Chloride 104 mmol/L (98-108); Cholesterol 223 mg/dL (<=200); Creatinine, Serum 0.56 mg/dL (0.70-1.20); EST Glomerular Filtration Rate 106 (>60); Glucose 92 mg/dL (70-99); High Density Lipoprotein 67 mg/dL; Low Density Lipoprotein Calc. 116 mg/dL; Potassium 4.1 mmol/L (3.3-5.1); Protein, Total 7.4 g/dL (5.9-8.4); Sodium Level 139 mmol/L (133-145); Total Bilirubin 0.41 mg/dL (0.00-1.30); Triglycerides 198 mg/dL; Very Low Density Lipoprotein 40 mg/dL (5-40); cholesterol:hdl ratio screen 3.31
[2025-02-02 13:43] LABS: Erythrocyte Sedimentation Rate 4 mm/hr (0-30)
[2025-02-02 13:59] LABS: CRP < 3.00 mg/L (0.0-3.0); Rheumatoid Factor 15.6 IU/mL (<15)
[2025-02-04 14:08] LABS: Anti-Centromere B Ab <0.2 AI (0.0-0.9); Anti-Chromatin <0.2 AI (0.0-0.9); Anti-Jo <0.2 AI (0.0-0.9); Anti-Scleroderma-70 AB <0.2 AI (0.0-0.9); Anti-dsDNA Ab <1 IU/mL (0-9); RNP Ab 0.4 AI (0.0-0.9); SJOGREN'S Anti-SS-A test < 0.2 AI (0.0-0.9); SJOGREN'S Anti-SS-B test < 0.2 AI (0.0-0.9); Smith Ab <0.2 AI (0.0-0.9)
== END | disposition home or self-care (01) ==
LOC: VSLAB 11:40
PROVIDERS: PCP Nurse Practitioner Family; Visit Provider Nurse Practitioner Family
DX: I10 Essential (primary) hypertension (principal); E78.5 Hyperlipidemia, unspecified; M35.3 Polymyalgia rheumatica
CPT/HCPCS: 36415; 80053; 80061; 84443; 84550; 85025; 85652; 86140; 86225; 86235; 86431

== ENCOUNTER 2025-09-26 15:08 | Emergency (ER) | payer BC, SELFPAY ==
[2025-09-26 15:08] VITALS: BP 182/97; PULSE 104; RESP 18; TEMP 35.9; O2SAT 99
--- NOTE | 2025-09-26 15:15 | RAD_ITS ---
PROCEDURE: ANKLE MIN 3 VIEWS 09/26/2025 REASON FOR EXAM: TRAUMA TECHNIQUE: Procedure Code: RADANK Modality: DX Procedure: ANKLE MIN 3 VIEWS Laterality: FINDINGS: No medial or lateral malleolar soft tissue swelling. No evidence of effusion. Slight plantar calcaneal spur. No definite ankle arthrosis or joint space narrowing. No fracture identified. No definite talonavicular joint arthrosis. RAD/Ankle min 3 Views IMPRESSION: Slight plantar calcaneal spur. Reading Location: [id number]
--- NOTE | 2025-09-26 15:15 | RAD_ITS ---
PROCEDURE: HIP, UNI W/ PELVIS 2-3 VIEWS 09/26/2025 REASON FOR EXAM: FALL TECHNIQUE: Procedure Code: [facility] Modality: DX Procedure: HIP, UNI W/ PELVIS 2-3 VIEWS COMPARISON: None. FINDINGS: BONES: No acute fracture or focal osseous lesion. JOINTS: No dislocation. The joint spaces are preserved. SOFT TISSUES: No acute abnormality seen. Soft tissue calcification along the left greater trochanter, likely from prior injury. RAD/HIP, UNI W/ Pelvis 2-3 Views IMPRESSION: No acute fracture or dislocation. Reading Location: [id number]
--- NOTE | 2025-09-26 16:29 | EDS_ITS ---
HPI History of Present Illness Chief Complaint: Lower Extremity Injury Informant: patient Narrative Narrative: 60-year-old female presenting to the emergency room with left hip injury. Patient states that she was walking her dog which is a large LAD mastiff mix. The leash got wrapped around her right ankle causing her to fall. She believes she did the splits but is not sure. She states she landed on the left side. When she did so she felt pain in the left hip. She notes limited range of motion of the hip and certain movements are tolerable and others are not. She denies striking her head. No back pain. Patient notes significant pain with internal rotation and with heel strike of attempting to ambulate. She notes pain when she tries to rotate her pelvis. She has ability to externally rotate. Painful flexion. Better in extension. She denies any pain radiating down the leg. Patient has utilized Tylenol and ibuprofen for pain. [facility] Medical History History of heart attack Home Medications ?Medication ?Instructions ?Recorded ?Last Taken ?Type aspirin 81 mg chewable tablet 81 mg PO DAILY heart hea lth 12/12/18 12/11/18 11:00 History atenolol 50 mg tablet 50 mg PO DAILY BP 12/12/18 0 12/11/18 11:00 History atorvastatin 40 mg tablet 40 mg PO QHS cholesterol 12/11/18 18:00 History cyclobenzaprine 10 mg tablet 10 mg PO QHS fibromyalgia 12/12/18 Unknown History hydroxyzine HCl 25 mg tablet 25 mg PO DAILY PRN PRN Al lergies 12/12/18 12/10/18 11:00 History fluoxetine 10 mg tablet ea PO 09/20/22 Unknown Histo ry acetaminophen 500 mg tablet 500 mg PO Q6H PRN 10/17/22 Unknown History (Tylenol Extra Strength) ibuprofen 200 mg tablet (Advil) 400 mg PO Q4H PRN 09/29 06/21 Unknown History meloxicam 15 mg tablet 15 mg PO DAILY #30 tabs 09/29 06/21 Unknown Rx oxycodone-acetaminophen 5 mg-325 1 tab PO Q6H PRN pain 3 days #12 09/26/25 Unknown Rx mg tablet (Percocet) tabs Allergy/AdvReac Type Severity Reaction Status Date / Time bee venom protein (honey bee) Allergy Swelling Verified 09/26/25 15:08 azithromycin AdvReac Nausea Verified 09/26/25 15:08 chocolate flavor AdvReac NEEDS Verified 09/26/25 15:08 FOLLOW-UP Surgical History History of heart artery stent History of lumbar surgery Social History Smoking Status: Current every day smoker tobacco type: cigarettes alcohol intake: current alcohol intake frequency: a few times a week ROS ROS ED Constitutional Constitutional ED: Denies chills, fever(s) or weight loss Eyes Eyes: Denies change in vision or diplopia ENT ENT ED: Denies ear pain, rhinorrhea or sore throat Cardiovascular Cardiovascular: Denies chest pain, orthopnea, palpitations or racing heartbeat Respiratory/Chest Respiratory/Chest: Denies cough, dyspnea or orthopnea Gastrointestinal Gastrointestinal: Denies abdominal pain, diarrhea, nausea or vomiting Genitourinary Genitourinary ED: Denies dysuria, hematuria or urinary frequency Musculoskeletal Musculoskeletal: Reports other Details: Left hip left ankle pain ; Denies arthralgias or myalgias Integumentary Denies abscess or rash Neurologic Neurologic: Denies headache(s) or weakness Psychiatric Psychiatric: Denies anxiety, depression, suicidal ideation or suicidal thoughts Endocrine Endocrinology: Denies polydipsia, polyphagia or polyuria Allergic/Immunologic Allergic/Immunologic ED: Denies mouth swelling, tongue swelling or urticaria EXAM Physical Exam Const Vital Signs: 09/26/25 15:08 09/26/25 16:56 Temperature 96.6 F L 98 F Temperature Source Temporal Pulse Rate 104 H 78 Respiratory Rate 18 15 Blood Pressure 182/97 H 186/89 H Blood Pressure Mean 125 121 Pulse Ox 99 97 Oxygen Delivery Method Room Air Positive well nourished and well developed General Appearance ED: well developed and NAD HEENT Reports normocephalic, head/scalp atraumatic and moist mucous membranes Eyes PERRL and EOMs intact bilaterally Neck no lymphadenopathy, supple and no JVD Resp normal respiratory effort and clear to auscultation bilaterally Cardio regular rate, regular rhythm and no murmurs GI normal to inspection, nondistended, normoactive bowel sounds and non-tender Palpation: soft Back/Spine no CVA tenderness and normal ROM Extremity Extremity Narrative: Patient is able to stand at the bedside. She is able to bear weight on the leg. Tender palpation in the musculature superior and posterior to the greater trochanter. There is no greater trochanteric tenderness. She has pain with internal rotation. She has pain with taking the leg into flexion. Neurovascular intact distally. Left ankle atraumatic General Extremety ED: Negative for edema General Extremity: Negative for edema Neuro oriented x3 and CN's II-XII intact bilaterally Sensorium / Orientation: alert Motor Exam: strength 5/5 throughout Psych mental status grossly normal Mood & Affect: Negative for depressed or tearful Skin no rashes or lesions noted and no wounds MDM MDM MDM Narrative Medical decision making narrative: Differential diagnosis includes but not limited to ankle fracture ankle sprain hip fracture hip contusion pubic rami fracture ligamentous injury tendon injury muscular contusion soft tissue contusion traumatic bursitis My independent interpretation the plain films of the right ankle is no acute fracture. My independent interpretation the plain films of the left hip and pelvis is no acute fracture. There is a smooth calcification just above the greater trochanter. I discussed this with the patient. As she is not tender at the greater trochanter I suspect that this is old and not new. I will write for work restrictions/work note. Should be given a dose of oxycodone. Crutches as needed. Follow-up with PCP 1 week. Return if worsening or concerns History & Record Review Discussion w/independent historian: Patient Radiography Diagnostic Testing: Clinical Impression(s) from Imaging Studies Ankle X-Ray 09/26/25 15:15 IMPRESSION: Slight plantar calcaneal spur. [facility]Pelvis [facility] 09/26/25 15:15 IMPRESSION: No acute fracture or dislocation. Reading Location: [id number] Discharge Plan Triage Chief Complaint: Lower Extremity Injury ED Provider: Wiliam Lutz Dx/Rx/DC Orders Clinical Impression: Fall, Contusion of hip, left Instructions: ED Hip Contusion Prescriptions: New oxycodone-acetaminophen [Percocet] 5-325 mg tablet 1 tab PO Q6H PRN (Reason: pain) 3 Days Qty: 12 0RF No Action fluoxetine 10 mg tablet PO Patient Comments: TAKE 1 TABLET BY MOUTH EVERY DAY acetaminophen [Tylenol Extra Strength] 500 mg tablet 500 mg PO Q6H PRN ibuprofen [Advil] 200 mg tablet 400 mg PO Q4H PRN meloxicam 15 mg tablet 15 mg PO DAILY Qty: 30 0RF cyclobenzaprine 10 MG tablet 10 mg PO QHS Patient Comments: Pt hasn't taken in a month. States her doctor will not fill it. Fibromyalgia atorvastatin 40 MG tablet 40 mg PO QHS Patient Comments: cholesterol hydroxyzine HCl 25 MG tablet 25 mg PO DAILY PRN PRN (Reason: Allergies) Patient Comments: allergies atenolol 50 tablet 50 mg PO DAILY Patient Comments: BP aspirin 81 MG tablet,chewable 81 mg PO DAILY Patient Comments: heart health Primary Care Provider: Flower Fitzgerald Referrals: Flower Fitzgerald, [employer] [Primary Care Provider, Family Practice] - 1 Week Print Language: Montenegrin Disposition Disposition: Home, Self Care Discharge Date/Time: 09/26/25 16:57
[2025-09-26 16:56] VITALS: BP 186/89; PULSE 78; RESP 15; TEMP 36.6; O2SAT 97
== END 2025-09-26 16:57 | disposition home or self-care (01) ==
PROVIDERS: Emergency Provider Emergency Medicine; PCP Nurse Practitioner Family; Visit Provider Emergency Medicine
DX: S70.02XA Contusion of left hip, initial encounter (principal); W01.0XXA Fall on same level from slipping, tripping and stumbling without subsequent striking against object, initial encounter; Y93.K1 Activity, walking an animal; F17.210 Nicotine dependence, cigarettes, uncomplicated; M77.32 Calcaneal spur, left foot
CPT/HCPCS: 73502; 73610; 99283